=== PATIENT | female | born 1975 | race Caucasian/White ===

== ENCOUNTER → 2017-12-10 08:06 | Outpatient (CLI) | payer BC, SELFPAY ==
[2017-12-10 09:09] LABS: FREE T4 0.88 ng/dL (0.76-1.46); TSH 0.92 uIU/mL (0.358-3.74)
[2017-12-10 16:17] LABS: T3, Total 134 ng/dl (97-169)
[2017-12-10 21:33] LABS: T3, Total 143 ng/dl (97-169)
== END ==
PROVIDERS: PCP Nurse Practitioner Family; Visit Provider Internal Medicine Endocrinology, Diabetes & Metabolism
DX: E03.9 Hypothyroidism, unspecified (principal)
CPT/HCPCS: 36415; 84439; 84443; 84480

== ENCOUNTER 2018-04-15 07:58 | Outpatient (CLI) | payer BC, SELFPAY ==
[2018-04-15 10:34] LABS: FREE T4 0.81 ng/dL (0.76-1.46); TSH 0.95 uIU/mL (0.358-3.74)
[2018-04-15 17:56] LABS: T3, Total 124 ng/dl (97-169)
[2018-04-15 21:58] LABS: T3, Total 164 ng/dl (97-169)
== END 2018-04-15 08:18 ==
PROVIDERS: PCP Nurse Practitioner Family; Visit Provider Internal Medicine Endocrinology, Diabetes & Metabolism
DX: E03.9 Hypothyroidism, unspecified (principal)
CPT/HCPCS: 36415; 84439; 84443; 84480

== ENCOUNTER 2018-04-21 00:40 | Outpatient (CLI) | payer BC, SELFPAY ==
--- NOTE | 2018-04-21 10:00 | DI.COMBO_ITS ---
SYMPTOMS/DIAGNOSIS: RIGHT BREAST MASS, N63.0 MAMMOGRAM: Mammograms were interpreted according to the usual protocol including computer analysis with CAD system, tomosynthesis and C view imaging. The breast tissue is moderately radiodense, which lowers the sensitivity of the study. In the right breast, there is a well-circumscribed region of lateral subareolar nodularity and a questionable small region of nodularity somewhat deeper in the breast and a third possible nodule laterally. The palpable abnormality is most superficial and is lateral subareolar. In the left breast, no mass is identified. There are no suspicious calcifications in either breast. SUMMARY: No specific findings to suggest malignancy at a nodular region that is smooth walled and well circumscribed and likely represents a benign process. Further evaluation with ultrasound is recommended. RIGHT BREAST ULTRASOUND: At ultrasound, there is a 1.7 x 1.2 x 2.4 cm well-circumscribed nodule, which appears in the region of the abnormality noted on the patient's mammogram. This nodule is hypoechoic and solid and likely represents a fibroadenoma. 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 Category 3. MQSA ASSESSMENT OF FINDINGS: Probably benign. Six month follow-up recommended. Category 3. Patient will receive a letter notifying them of these results. BI-RADS category D. The breasts are extremely dense, which lowers the sensitivity of mammography.
== END 2018-04-21 01:00 ==
PROVIDERS: PCP Nurse Practitioner Family; Visit Provider Nurse Practitioner Family
DX: N63.10 Unspecified lump in the right breast, unspecified quadrant (principal); D24.1 Benign neoplasm of right breast
CPT/HCPCS: 76642; 77062; 77066; G0279

== ENCOUNTER 2018-06-09 18:12 | Outpatient (REF) | payer BC, SELFPAY ==
[2018-06-09 20:26] LABS: HCG Quant, Pregnancy < 1 mIU/mL (1-3)
== END 2018-06-09 18:32 ==
LOC: NCHCN 18:12
PROVIDERS: PCP Nurse Practitioner Family; Visit Provider Nurse Practitioner Family
DX: N91.1 Secondary amenorrhea (principal)
CPT/HCPCS: 84702

== ENCOUNTER 2018-10-13 07:45 | Outpatient (CLI) | payer BC, SELFPAY ==
[2018-10-13 09:30] LABS: FREE T4 0.95 ng/dL (0.76-1.46); TSH 0.06 uIU/mL (0.358-3.74)
[2018-10-13 18:19] LABS: T3, Total 132 ng/dl (97-169)
[2018-10-13 21:31] LABS: T3, Total 205 ng/dl (97-169)
== END 2018-10-13 08:05 ==
PROVIDERS: PCP Nurse Practitioner Family; Visit Provider Internal Medicine Endocrinology, Diabetes & Metabolism
DX: E03.9 Hypothyroidism, unspecified (principal)
CPT/HCPCS: 36415; 84439; 84443; 84480

== ENCOUNTER 2019-05-31 07:44 | Outpatient (CLI) | payer BC, SELFPAY ==
[2019-05-31 09:09] LABS: FREE T4 0.79 ng/dL (0.76-1.46); TSH 1.45 uIU/mL (0.36-3.74)
[2019-05-31 17:02] LABS: T3, Total 142 ng/dL (97-169)
== END 2019-05-31 08:04 ==
PROVIDERS: PCP Nurse Practitioner Family; Visit Provider Internal Medicine Endocrinology, Diabetes & Metabolism
DX: E03.9 Hypothyroidism, unspecified (principal)
CPT/HCPCS: 36415; 84439; 84443; 84480

== ENCOUNTER 2019-10-07 14:43 | Emergency (ER) | payer BC, SELFPAY ==
[2019-10-07 14:47] VITALS: BP 147/63; PULSE 50; RESP 16; TEMP 36.7; O2SAT 99
[2019-10-07 15:14] LABS: Bilirubin Small (Negative); Blood Small (Negative); Clarity Clear (Clear); Glucose Negative (Negative); Ketones 15 mg/dL (Negative); Leukocyte Esterase Negative (Negative); Nitrite Negative (Negative); Specific Gravity 1.025 (1.005-1.025); Urobilinogen 0.2 EU/dL (Up TO 0.2); pH 5.5 (5-8)
--- NOTE | 2019-10-07 15:14 | W.ED.GENAD ---
Discharge Plan Disposition Patient Disposition: HOME Condition: Stable Discharge Details Chief Complaint: Abd Prob Clinical Impression: Gastritis Primary Care Provider: Pee Coombs ED Provider: Edwina Washington Home Meds and New Rx's Prescriptions: New ondansetron HCl [Zofran] 4 mg tablet 4 mg PO Q8H PRNQty: 14 RF: 0 sucralfate [Carafate] 1 gram tablet 1 gm PO TID Qty: 21 RF: 0 omeprazole 20 mg capsule,delayed release(DR/EC) 20 mg PO DAILY Qty: 7 RF: 0 Continued thyroid (pork) [[place] Thyroid] 90 MG tablet 90 mg PO DAILY RF: 0 sertraline 50 mg tablet 100 mg PO DAILY RF: 0 Discharge Instructions Instructions: Gastritis (ED) Additional Instructions: Stay well-hydrated. Use medications as prescribed. When you finish your first week of omeprazole please change to Pepcid [id number] as discussed. Please follow-up with your primary care doctor within 1 week for reevaluation. Follow-up with outpatient surgeon as discussed for consideration of an upper endoscopy as discussed. Rest activities as tolerated. Your CAT scan is reassuring as discussed. Return for any worsening, concerns or alarming symptoms sooner if needed Referrals: Dulce Maria Min DO [OSTEOPATHIC DOCTOR] - Discharge Data Discharge Date/Time-TO BE ENTERED AT DEPARTURE: 10/07/19 18:15 Medical Decision Making <Daisy Echavarria - Last Filed: 10/08/19 14:31> 44-year-old female with a history of IBS presents with a chief complaint of left upper quadrant abdominal pain. This began 2 days ago which was associated with nausea and vomiting which is now resolved. States it is a dull crampy pain which increases to sharp stabbing pains after eating. Denies diarrhea has been urinating without difficulty. Denies chest pain, shortness of breath. She does also endorse diaphoresis, subjective fever, cough, denies any recent travel. 1553: Patient reevaluation, she is still complaining of nausea has received p.o. Zofran ODT. RN at bedside drawing second blood culture. Will order Pepcid IV piggyback and another Zofran 4 mg IV push. At this time kidney functions are pending and CT is pending. Differential diagnosis includes but not limited to gastric ulcer, exacerbation of IBS, gastroenteritis, acute gastritis, COVID, cholecystitis, pancreatitis, viral gastroenteritis. Care is to be handed off to oncoming provider MOISES Rivero pending labs, CT result expected disposition is discharged home. I suspect this is an exacerbation of her IBS but gastroenteritis or other pathology cannot be excluded at this time. Patient case and details discussed, verbalized understanding. <MOISES Martinez - Last Filed: 10/07/19 18:11> Accepted signout of this patient pending CT results. Please see HPI regarding details of patient's history. Patient reevaluated after CT results returned. CT results reveals no acute intra-abdominal emergency. There is a mass noted in patient's right breast which patient is aware of has had biopsy and evaluation for in the past. Patient is currently menstruating with tampon in place which explains intravaginal finding. Patient reports she has been moving bowels without difficulty and denies obvious constipation despite stool burden noted. On reevaluation patient does report improvement compared to initial presentation in the last few days however patient does report persistent left upper quadrant pain. Patient has mild tenderness with palpation. Will trial GI cocktail. Patient agrees with this plan of care. Patient primarily concerned the possibility of ulcerative disease. Patient does report some improvement with Pepcid previously provided during visit and nausea medication. Patient is requesting nausea medication prescription for home. We did discuss use of PPIs. Patient reports she does take Zantac at home. Patient feels most comfortable continuing Zantac use. Did recommended continued use of Pepcid. Discussed the possibility of EGD for concern of gastritis or ulcerative disease. Patient agrees with plan of follow-up including surgical referral and plan to reevaluate with PCP. Patient feels significantly improved after GI cocktail, full resolution of pain. Will refer to surgery for consideration of EGD. Patient agrees with this plan of care. Given significant improvement recommended patient use omeprazole for 1 week then transition to Pepcid in addition to Carafate for symptomatic relief. Of note on discharge patient is bradycardic which she reports this to be her baseline. She denies chest pain, difficulty breathing or shortness of breath or wheezing. Has no concerns of her heart rate. Patient's previous visits all revealed similar trend in heart rates. The patient was stable and requested discharge. Prior to discharge, my usual and customary return precautions were reviewed with the patient - this included follow-up instructions and reasons to return to the Emergency Department if conditions worsens, does not improve as expected, or other new concerns arise. HPI <Daisy Jericho - Last Filed: 10/08/19 14:31> General Mode of arrival: ambulatory. Date/Time Provider Initiated Documentation: 10/07/19 14:50. Limitations to Documentation: no limitations. Information obtained by: patient. HPI Narrative: 44-year-old female with a history of IBS presents with a chief complaint of left upper quadrant abdominal pain. This began 2 days ago which was associated with nausea and vomiting which is now resolved. States it is a dull crampy pain which increases to sharp stabbing pains after eating. Denies diarrhea has been urinating without difficulty. Denies chest pain, shortness of breath. She does also endorse diaphoresis, subjective fever, cough, denies any recent travel. Related Data Home Medications Medication Instructions Recorded Confirmed thyroid (pork) [[place] Thyroid] 90 mg PO DAILY 05/19/13 10/07/19 omeprazole 20 mg PO DAILY #7 cap 10/07/19 ondansetron HCl [Zofran] 4 mg PO Q8H PRN #14 tab 10/07/19 sertraline 100 mg PO DAILY 10/07/19 10/07/19 sucralfate [Carafate] 1 gm PO TID #21 tab 10/07/19 Previous Rx's Medication Instructions Recorded omeprazole 20 mg PO DAILY #7 cap 10/07/19 ondansetron HCl [Zofran] 4 mg PO Q8H PRN #14 tab 10/07/19 sucralfate [Carafate] 1 gm PO TID #21 tab 10/07/19 Allergies Allergy/AdvReac Type Severity Reaction Status Date / Time No Known Allergies Allergy Unverified 10/07/19 14:51 General Stated Complaint: Abd Prob NOHEMI: 3 Review of Systems <Daisy Echavarria - Last Filed: 10/08/19 14:31> Narrative: Constitutional: Negative for weight loss, alert and oriented, well groomed, normal body habitus, appears comfortable. HEENT: Denies trauma, headaches, blurry vision, nasal discharge, sore throat, trouble swallowing. Chest: Denies chest pain, palpitations, irregular rhythm, hypertension. Respiratory: Denies Shortness of breath, cough, hemoptysis. GI: Denies diarrhea, constipation. Positive left upper quadrant abdominal pain associated nausea and vomiting which has resolved. History of IBS. : Denies dysuria, hematuria, flank pain, rectal bleeding. Neuro: Denies dizziness, blurry vision, weakness, syncope, headache or facial numbness. Hematologic: Denies easy bruising, intolerance to heat or cold, hair loss. All systems reviewed & are unremarkable except as noted in HPI and below PFSH <Daisy Echavarria - Last Filed: 10/08/19 14:31> Social History Smoking/Tobacco Use Status: Former Tobacco Use Alcohol Intake: never Drug use: Never Substance use type: does not use Details: quit smoking 2018 Exam <Daisy Echavarria - [facility] Filed: 10/08/19 14:31> Narrative Exam Narrative: Constitutional: Alert and oriented x3. Appears stated age. Normal body habitus. Head: Normocephalic, no trauma. Eyes: Pupils PERRLA, Red reflex noted, EOM's intact. Eyelids symmetrical without lesions, discharge, or swelling. ENT: Bilateral TM's WNL, External ear normal to inspection, no mastoid TTP, swelling, or erythema, Nasal turbinates WNL, no nasal discharge. Normal dentition, Posterior pharynx WNL, no exudate. Chest: RRR, Normal S1, S2, distal pulses intact. Resp: Lungs clear to auscultation bilaterally, no wheezes, rales, or rhonchi. Musculoskeletal: Normal gait, 5/5 strength to all four extremities. Abdomen: Normal to inspection, soft nondistended, mild left upper quadrant tenderness with palpation. Skin: No suspicious rashes or lesions. Capillary refill less than 2 sec. Neurologic: Cranial nerves II-XII intact. Alert and oriented x 3. DTR's intact. Hematologic/Lymphatic: No ecchymosis, no lymphadenopathy. Course <Daisy Echavarria - Last Filed: 10/08/19 14:31> Vital Signs Vital signs: Vital Signs Temperature 36.7 C 10/07/19 14:47 Pulse 50 L 10/07/19 14:47 Respiratory Rate 16 10/07/19 14:47 Blood Pressure 147/63 H 10/07/19 14:47 Pulse Oximetry 99 10/07/19 14:47 Temperature 36.7 C 10/07/19 14:47 Temperature Source Skin 10/07/19 14:47 Pulse 50 L 10/07/19 14:47 Respiratory Rate 16 10/07/19 14:47 Respiratory Effort 10/07/19 14:52 Blood Pressure 147/63 H 10/07/19 14:47 Blood Pressure Position Supine 10/07/19 14:47 Pulse Oximetry 99 10/07/19 14:47 Oxygen Delivery Method Room Air 10/07/19 14:47 Oxygen Flow Rate 0 10/07/19 14:47 Pain Level 9 10/07/19 14:47 Lab/Test Results Lab/Test Results: 10/07/19 15:10 Blood Blood Culture - Pending 10/07/19 15:10 Blood Blood Culture - Pending POC- Test(urine) Negative Sign Out <Daisy Echavarria - Last Filed: 10/08/19 14:31> Sign Out Data: Sign Out Comment: Pending CT abdomen pelvis, rule out exacerbation of IBS versus gastroenteritis. Was tested for COVID. Last updated by Daisy Echavarria at 10/07/19 16:16
[2019-10-07 15:24] LABS: Bacteria Few HPF (Negative); Epithelial Cells Few HPF (Negative); RBC 0-2 HPF (0-2); WBC 0-2 HPF (0-5)
[2019-10-07 15:25] LABS: C & S Indicated? No; Casts Negative LPF (Negative); Crystals Negative HPF (Negative); Mucus Moderate (Negative)
[2019-10-07] MEDS: Normal Saline 1,000 ML 1000 ML IV (15:25)
[2019-10-07] MEDS: Ondansetron O.D.T. 4 MG TABEF PO (15:44)
[2019-10-07 15:49] LABS: Abs Immature Grans 0.01 k/cumm (0.0-0.09); Absolute Basophil Count 0.02 k/cumm (0.0-0.2); Absolute Eosinophil Count 0.02 k/cumm (0.0-0.7); Absolute Lymphocyte Count 1.64 k/cumm (1.2-3.4); Absolute Monocyte Count 0.56 k/cumm (0.11-0.7); Absolute Neutrophil Count 5.79 k/cumm (1.2-6.7); Basophils % 0.2; Eosinophils % 0.2; HGB 12.7 g/dL (12.0-15.5); Immature Grans % 0.1 %; Lymphocytes % 20.4; Mean Corp. HGB Concentration 33.4 g/dL (32.0-36.0); Mean Corpuscular Hemoglobin 28.7 pg (27.0-33.0); Neutrophils % 72.1; Platelet Count 257 x1000/uL (130-400); RBC 4.42 m/cumm (4.00-5.20); RBC Distribution Width 12.8 % (11.7-14.6); White Blood Cell Count 8.04 k/cumm (4.4-10.8)
[2019-10-07 15:56] LABS: Lipase 73 U/L (73-393)
[2019-10-07 15:59] LABS: ALT 31 U/L (14-59); AST 19 U/L (15-37); Albumin 3.7 g/dL (3.4-5.0); Alkaline Phosphatase 47 U/L (46-116); Anion Gap 8.3 mmol/L (3-11); BUN 7 mg/dL (7-18); Bilirubin, Total 0.5 mg/dL (0.2-1.0); CO2 26.7 mmol/L (21.0-32.0); CREATININE 0.95 mg/dL (0.55-1.02); Calcium 8.7 mg/dL (8.5-10.1); Chloride 102 mmol/L (98-107); Glucose 112 mg/dL (74-106); Magnesium 1.9 mg/dL (1.8-2.4); Potassium 3.1 mmol/L (3.5-5.1); Sodium 137 mmol/L (136-145); Total Protein 7.3 g/dL (6.4-8.2)
[2019-10-07] MEDS: Normal Saline - Diluent 50 ML VIAL IV (16:21)
[2019-10-07] MEDS: Omnipaque 350 MG/ML 100 ML BTL IJ (16:22)
--- NOTE | 2019-10-07 16:33 | DI.CT_ITS ---
EXAM: CT ABDOMEN PELVIS W CLINICAL HISTORY: Left upper quadrant abdominal pain nausea vomiting, H/O IBS,? GASTRITIS OR ENTERIT IS COMPARISON: CT ABD PELVIS WITH CONTRAST from 05/19/2013 FINDINGS: CT examination of the abdomen and pelvis was performed with a bolus infusion of 100 cc of Omnipaque 3 50. Note is made of a lobulated right breast mass, a 2.4 cm in diameter right breast mass was noted on prior ultrasound of April 2018, follow-up mammogram and ultrasound recommended to rule out new breast mass. Images obtained through the lung bases are unremarkable. The liver, spleen, and pancreas appear norm al. Question mild small bowel wall thickening in the left upper quadrant, a small jejunal intussusce ption is noted, this is statistically likely to be transient. Follow-up CT or upper GI series recomm ended. No other focal bowel pathology. Normal appearance of the appendix. No evidence of diverticulitis or bowel obstruction. Gallbladder and bile ducts are CT normal with an apparent Phrygian cap of the gallbladder. Adrenals and kidneys appear normal. No urinary tract calcification or hydronephrosis. Abdominal aorta is of normal diameter and major visceral vessels appear normal. No abdominal wall hernia. No significant abdominal or pelvic adenopathy. Prop Setter structures are unremarkable. No free fluid in the pelvis. IMPRESSION: Incidental finding of right breast mass, 2-3 cm in diameter, this probably corresponds to previously noted right breast mass seen at ultrasound in 2018. Mammographic and ultrasound correlation requeste d, I would note that the mass was previously seen to be consistent with fibroadenoma and follow-up ex amination was recommended, however I see no evidence of follow-up since that time. Jejunal intussusception, mild wall thickening proximal small bowel noted, follow-up upper GI/small arin wel follow-through or repeat CT recommended to rule out underlying mass causing intussusception.
[2019-10-07 16:42] VITALS: BP 129/51; PULSE 45; RESP 16; TEMP 36.5; O2SAT 100
[2019-10-07] MEDS: FAMOTIDINE 20 MG/50 ML BAG 200 MG IVPB (16:46)
[2019-10-07] MEDS: Ondansetron 4 MG/2 ML VIAL IVP (16:46)
--- NOTE | 2019-10-07 17:08 | DI.VRAD_ITS ---
PROCEDURE INFORMATION: Exam: CT Abdomen And Pelvis With Contrast Exam date and time: 10/07/2019 4:28 PM Age: 44 years old Clinical indication: Abdominal pain; Generalized; Patient HX: Luq pain, nausea, vomiting TECHNIQUE: Imaging protocol: Computed tomography of the abdomen and pelvis with intravenous contrast. Radiation optimization: All CT scans at this facility use at least one of these dose optimization techniques: automated exposure control; mA and/or kV adjustment per patient size (includes targeted exams where dose is matched to clinical indication); or iterative reconstruction. Contrast material: OMNI-PAQUE 350; Contrast volume: 100 ml; Contrast route: IV; COMPARISON: CT ABD PELVIS WITH CONTRAST 05/19/2013 7:17 PM FINDINGS: Lungs: Minimal scarring and/or atelectasis at the lung bases as well as in the right middle lobe. Liver: Normal. No mass. Gallbladder and bile ducts: Normal. No calcified stones. No ductal dilation. Pancreas: Normal. No ductal dilation. Spleen: Normal. No splenomegaly. Adrenals: Normal. No mass. Kidneys and ureters: Normal. No hydronephrosis. Stomach and bowel: The stomach shows no abnormality. The small bowel is nondilated. Moderate fecal burden throughout the colon without surrounding inflammation Appendix: No evidence of appendicitis. Intraperitoneal space: Unremarkable. No free air. No significant fluid collection. Vasculature: Unremarkable. No abdominal aortic aneurysm. Lymph nodes: Unremarkable. No enlarged lymph nodes. Bladder: Unremarkable as visualized. Reproductive: Several prominent follicles the right ovary the largest measuring 1.5 cm. Uterus shows no abnormality. There is a large amount of air in the vagina most likely a tampon . Bones/joints: Unremarkable. No acute fracture. Soft tissues: The breasts are only partially visualized but there is some increased density in the right breast. In particular there is a 2 cm ovoid soft tissue masslike density in the anterior right breast. IMPRESSION: 1. 2 cm mass in the right breast. April 23, 2018 on ultrasound there was a 2.4 cm well-circumscribed nodule according to the report that may correspond to this mass which was suggested to be a fibroadenoma. On a non emergent basis correlation is suggested. 2. No clear etiology of the patient's left upper quadrant pain or nausea and vomiting is demonstrated. Dictated and Authenticated by: Bruno Payton MD. Ordering:MAYNOR Villa MD
[2019-10-07 17:48] VITALS: BP 122/56; PULSE 46; RESP 18; TEMP 36.6; O2SAT 99
--- NOTE | 2019-10-07 18:10 | NUR.NOTE ---
Nursing Note: Referral [facility] for follow up. Honey Jacobs
--- NOTE | 2019-10-08 08:25 | W.ED.FU ---
Date of service: 10/08/19 Time of Service: 08:25 08 29: Spoke with patient she states she does feel somewhat better and some times does have a little twinge of pain discussed findings she does state that she has had Follow Up Plan: Call received from radiologist Dr. Stu Castañeda regarding CT abdomen patient received last night with IV contrast. He reports a jejunal into jejunal intussusception which could be somewhat transient sometimes but does need close follow-up with a small bowel follow-through. She also has a right breast mass that does need a repeat mammogram. I will call patient this morning to see how she is feeling and relay these messages. 29: Did speak with patient on the phone she does state that she feels somewhat better. Discussed radiology findings, verbalized understanding. She has had a repeat mammogram for her right breast mass at [facility]. Discussed the possible intussusception and strict return instructions. Did stress the importance of following up with surgery and having close follow-up, verbalized understanding.
[2019-10-08 11:57] LABS: COVID-19 RT-PCR UVMMC Result Negative (Negative)
== END 2019-10-07 18:15 | disposition home or self-care (01) ==
PROVIDERS: Registered Nurse Emergency; Emergency Provider Physician Assistant; PCP Nurse Practitioner Family
DX: K56.1 Intussusception (principal); K29.00 Acute gastritis without bleeding; R10.12 Left upper quadrant pain; K58.9 Irritable bowel syndrome, unspecified
CPT/HCPCS: 36415; 80053; 81025; 83690; 87040; 96361; 96374; 96375; 99285; U0003; 74177; 81003; 81015; 83735; 85025; 99284; J2405; J3490

== ENCOUNTER 2021-01-04 16:20 | Outpatient (REF) | payer BC, SELFPAY ==
[2021-01-04 21:22] LABS: FREE T4 0.91 ng/dL (0.76-1.46); TSH 0.27 uIU/mL (0.36-3.74)
[2021-01-05 17:20] LABS: T3,Free 3.8 pg/mL (2.8-5.3)
== END 2021-01-04 16:21 | disposition home or self-care (01) ==
LOC: LBN 16:20
PROVIDERS: PCP Nurse Practitioner Family; Visit Provider Nurse Practitioner Family
DX: E03.9 Hypothyroidism, unspecified (principal)
CPT/HCPCS: 84439; 84443; 84481

== ENCOUNTER 2021-10-05 01:45 | Outpatient (CLI) | payer BC, SELFPAY ==
[2021-10-05 09:04] LABS: FREE T4 0.88 ng/dL (0.76-1.46); TSH 1.14 uIU/mL (0.36-3.74)
[2021-10-05 18:46] LABS: T3, Total 131 ng/dL (97-169)
[2021-10-05 22:30] LABS: T3, Total 158 ng/dL (97-169)
== END 2021-10-05 01:46 | disposition home or self-care (01) ==
PROVIDERS: PCP Nurse Practitioner Family; Visit Provider Internal Medicine Endocrinology, Diabetes & Metabolism
DX: E03.9 Hypothyroidism, unspecified (principal)
CPT/HCPCS: 36415; 84439; 84443; 84480

== ENCOUNTER 2022-08-02 08:32 | Emergency (ER) | payer BC, SELFPAY ==
[2022-08-02] VITALS (13 sets, daily range): BP systolic 120–122; BP diastolic 66–68; PULSE 63–87; RESP 8–25; TEMP 35.5; O2SAT 98
--- NOTE | 2022-08-02 08:30 | RT.EKG_ITS ---
APPROVED REPORT Exam: Resting ECG Reason for Exam: palpitations Patient Location: E HR:77 bpm ECG Measurements Heart Rate 77 AXIS MO 153 P 74 QRSd 82 QRS 36 QT 361 T 28 QTc 410 Conclusion Sinus rhythm...normal P axis, V-rate 60- 99
--- NOTE | 2022-08-02 08:59 | W.ED.GENAD ---
Discharge Plan Disposition Patient Disposition: Home Discharge Details Clinical Impression: Heart palpitations Primary Care Provider: Karen Renner ED Provider: Stu Sage Home Meds and New Rx's Prescriptions: Continued thyroid (pork) [[place] Thyroid] 90 mg tablet 45 mg PO DAILY Discharge Instructions Instructions: Heart Palpitations (ED) Additional Instructions: I have ordered an outpatient Holter monitor for you. Please follow-up with respiratory therapy to execute this order. They were not able to place the monitor today in the ER. Continue routine medications. Consider reducing caffeine to decaffeinated coffee in the late morning and daytime. Continue small, frequent sips of fluids to maintain good hydration. Return to the emergency room for any acute concerns Medical Decision Making This is a 47-year-old female who states over the past 15 to 20 years she has had 5 or so episodes of palpitations that have resolved on their own. She will note last night she had a bit of poor sleep, then awoke normally and after doing her morning routine she noted the onset of palpitations following a single cough. They persisted until she got to work, she felt some tingling in her hands and presented to the ER. She did not have syncope or chest pain. She states upon lying in the gurney she felt the palpitations resolved. She has not had any difficulty breathing, leg swelling. She does drink coffee daily but there is been no change to this routine. Her only medication is thyroid replacement.. Patient arrives with no active complaint. Her initial EKG is unremarkable and a sinus rhythm. Differential diagnosis includes PSVT, benign palpitations, PVCs, electrolyte abnormality or dehydration. Patient had screening blood work obtained and observed on the [employer] assistant [employer]. No PVCs or other abnormality observed. Screening blood work unremarkable and patient feeling improved. I will place patient on a Holter monitor as an outpatient. I am quite suspicious for PSVT and discussed this with her. She understands indications to return to the ER. HPI General Mode of arrival: ambulatory. Date/Time Provider Initiated Documentation: 08/02/22 08:32. Limitations to Documentation: no limitations. Information obtained by: patient. History of Present Illness 47 year old F presents to the emergency department with the chief complaint of Palpitations 45 minutes, now resolved, described as mild and similar to prior episodes, and is localized to the chest. Patient reports no radiation. Patient started experiencing this minute(s) and it has been now resolved. No relieving factors improve symptom(s), No exacerbating factors reported . Patient notes no other symptoms.; denies chest pain, cough, fever/chills and syncope. Patient did receive the following treatments prior to arrival, none Related Data Home Medications Medication Instructions Recorded Confirmed thyroid (pork) 90 mg tablet 45 mg PO DAILY 02/15/21 08/02/22 ([place] Thyroid) Allergies Allergy/AdvReac Type Severity Reaction Status Date / Time No Known Allergies Allergy Unverified 08/02/22 09:10 General Stated Complaint: Palpitatns NOHEMI: 2 Review of Systems Narrative: Some poor sleep last night. No recent illness. Drinks coffee daily. No change to routine. Denies chest pain. 7 systems reviewed and otherwise negative PFSH All Active Problems (Updated 08/02/22 @ 10:19 by Stu Sage MD) Heart palpitations (Acute) Halitosis (Acute) Chronic tonsillitis (Acute) Hypothyroidism (Chronic) Depression (Chronic) Fatigue (Acute) Diarrhea (Acute) Breast mass (Acute) Sleep disorder (Acute) Bradycardia (Acute) Hearing loss, right (Acute) Tonsillolith (Acute) Family History Maternal Grandmother Breast cancer Paternal Grandmother Breast cancer Maternal Grandmother No problems noted. Paternal Grandfather Diabetes Maternal Grandfather Diabetes Other FHx: mental illness Heart disease Thyroid disease Social History Smoking/Tobacco Use Status: Former Tobacco Use Smoking risk assessment performed?: Yes Alcohol Intake: former Drug use: Never Substance use type: does not use Details: quit smoking 2018 Pets and animals: Yes Pets and animals: dog(s) and farm animals Exam Narrative Exam Narrative: GEN: awake, alert, oriented 3. Pleasant, well groomed, interactive. HEAD: Normocephalic, atraumatic ENT: Mucous membranes moist, oropharynx unremarkable, External ear exam unremarkable EYES: PERRL, EOMI NECK: Full ROM, no CLAIR, no menigismus CHEST/RESP: Nontender, clear to auscultation bilateral, no wheeze/rhonchi/rales CARDIOVASCULAR: RRR, no murmur, rub lenny. 2+ Rad pulse bilateral ABDOMEN: Soft, nontender, no mass. +Bowel sounds EXT: Full ROM, no edema, no rash Neuro: Grossly normal neurologic exam, conversant, interactive. Psych: Speech fluent, thoughts congruent, affect normal Course Vital Signs Vital signs: Vital Signs Temperature 35.5 C L 08/02/22 08:36 Pulse 87 08/02/22 08:36 Respiratory Rate 17 08/02/22 08:36 Blood Pressure 122/66 08/02/22 08:36 Pulse Oximetry 98 08/02/22 08:36 Temperature 35.5 C L 08/02/22 08:36 Temperature Source Tympanic 08/02/22 08:36 Pulse 87 08/02/22 08:36 Respiratory Rate 17 08/02/22 08:36 Blood Pressure 122/66 08/02/22 08:36 Pulse Oximetry 98 08/02/22 08:36 Oxygen Delivery Method Room Air 08/02/22 08:36 Oxygen Flow Rate 0 08/02/22 08:36 Pain Level 0 08/02/22 08:36
[2022-08-02 09:05] LABS: Abs Immature Grans 0.01 10^3/uL (0.0-0.06); Absolute Basophil Count 0.06 10^3/uL (0.0-0.2); Absolute Eosinophil Count 0.34 10^3/uL (0.0-0.7); Absolute Lymphocyte Count 1.72 10^3/uL (1.2-3.4); Absolute Monocyte Count 0.38 10^3/uL (0.1-0.8); Absolute Neutrophil Count 3.46 10^3/uL (1.2-6.7); Eosinophils % 5.7; HGB 13.6 g/dL (11.2-15.7); Immature Grans % 0.2; Lymphocytes % 28.8; MCH 29.5 pg (27.0-33.0); MCV 87 fL (80-95); Monocytes % 6.4; Neutrophils % 57.9; Platelet Count 195 10^3/uL (130-400); RBC 4.61 10^6/uL (3.93-5.22); RDW 12.6 % (11.7-14.6); RDW-SD 39.7 fL; WBC 5.97 10^3/uL (4.4-10.8)
[2022-08-02 10:11] LABS: ALT 30 U/L (14-59); AST 18 U/L (15-37); Albumin 3.5 g/dL (3.4-5.0); Alkaline Phosphatase 62 U/L (46-116); Anion Gap 8.2 mmol/L (3-11); BUN 13 mg/dL (7-18); Bilirubin, Total 0.4 mg/dL (0.2-1.0); CO2 25.8 mmol/L (21.0-32.0); CREATININE 0.8 mg/dL (0.55-1.02); Calcium 9.1 mg/dL (8.5-10.1); Chloride 107 mmol/L (98-107); Estimated GFR 91.97 (mL/min/1.73m2); Glucose 100 mg/dL (74-106); Magnesium 1.8 mg/dL (1.8-2.4); Potassium 4.1 mmol/L (3.5-5.1); Sodium 141 mmol/L (136-145); Total Protein 7.2 g/dL (6.4-8.2); Troponin I < 50 ng/L (<or=60)
--- NOTE | 2022-08-03 07:54 | NUR.NOTE ---
Nursing Note: Paper order for 24hr holter monitor faxed to [facility] for palpitations/by Dr. Sage.
== END 2022-08-02 10:30 | disposition home or self-care (01) ==
PROVIDERS: Emergency Provider Emergency Medicine; PCP Family Medicine
DX: R00.2 Palpitations (principal); R20.2 Paresthesia of skin; R05.9 Cough, unspecified
CPT/HCPCS: 80053; 93005; 99283; 83735; 84443; 84484; 85025; 93010; 93225

== ENCOUNTER 2022-12-02 13:44 | Outpatient (CLI) | payer BC, SELFPAY ==
[2022-12-02 12:57] LABS: HCT 40.2 % (36.0-46.0); HGB 13.5 g/dL (11.2-15.7); MCH 29.7 pg (27.0-33.0); MCHC 33.6 % (32.0-36.0); MCV 88 fL (80-95); MPV 10.4 fL (8.0-11.0); Platelet Count 227 10^3/uL (130-400); RBC 4.55 10^6/uL (3.93-5.22); RDW 12.9 % (11.7-14.6); RDW-SD 42.3 fL; WBC 6.87 10^3/uL (4.4-10.8)
[2022-12-02 13:11] LABS: Anion Gap 8.6 mmol/L (3-11); BUN 13 mg/dL (7-18); CO2 25.4 mmol/L (21.0-32.0); Calcium 8.3 mg/dL (8.5-10.1); Calculated LDL 104 mg/dL (<100); Chloride 106 mmol/L (98-107); Cholesterol 167 mg/dL (<200); Estimated GFR 70.36 (mL/min/1.73m2); Glucose 102 mg/dL (74-106); HDL Cholesterol 43 mg/dL (40-60); Sodium 140 mmol/L (136-145); Triglyceride 100 mg/dL (<150)
[2022-12-02 13:12] LABS: Hemoglobin A1C 5.4 % (<5.7)
== END 2022-12-02 13:45 | disposition home or self-care (01) ==
LOC: LBO 13:44
PROVIDERS: PCP Family Medicine; Visit Provider Nurse Practitioner Family
DX: Z00.00 Encounter for general adult medical examination without abnormal findings (principal); E03.9 Hypothyroidism, unspecified; F32.89 Other specified depressive episodes; Z13.1 Encounter for screening for diabetes mellitus; Z13.220 Encounter for screening for lipoid disorders
CPT/HCPCS: 36415; 80048; 80061; 85027; 83036

== ENCOUNTER → 2023-03-26 01:53 | Outpatient (CLI) | payer BC, SELFPAY ==
--- NOTE | 2023-03-26 | DI.MAMMO_ITS ---
Exam(s) MAMMO SCREENING EXAM: MAMMO SCREENING CLINICAL HISTORY: SCREENING, PREVENT[facility],Z00.00 TECHNIQUE: Bilateral full field digital CC and MLO mammographic images were obtained with 3D tomosyn thesis and utilizing computer aided detection (CAD). COMPARISON: Available for comparison. FINDINGS: Masses/Architectural Distortion: There is a new 6 mm nodule in the outer left breast seen on the cran iocaudad view 10 cm from the nipple. There is a stable nodule in the right breast. There is a biops y clip now seen within the nodule. No areas of architectural distortion are present. Microcalcifications: No suspicious pleomorphic-type are seen. Skin Thickening/Nipple Retraction: None. IMPRESSION: 1. New 6 mm nodule in the outer left breast. 2. This area should be further evaluated with a spot compression view. Limited left breast ultrasoun d may also be obtained at that time. Be BI-RADS Category 0 - Assessment Incomplete: Need additional imaging evaluation Breast Density - Category B - Scattered areas of fibroglandular density Breast density category C or D implies that the patient has dense breast tissue. Dense breast tissue is very common and is not abnormal but dense breast tissue can make it harder to find cancer on a ma mmogram. Also, dense breast tissue may increase their breast cancer risk. This information about the result of the mammogram report was provided to the patient to raise their awareness. Use this report when you speak with the patient about their risks for breast cancer, which includes their family hist ory. At that time, you may recommend for more screening tests (Ultrasound or MRI) as they might be us eful based on their risk. A negative radiographic report should not delay biopsy if a dominant or clinically suspicious mass is present. Up to ten percent of cancers are not identified on mammography. A negative report may reinforce clinical impression. Adenosis and dense breasts may obscure an underlying neoplasm. False positive reports average 6 to 10%. Patient will receive a letter notifying them of these results.
== END ==
PROVIDERS: PCP Family Medicine; Visit Provider Nurse Practitioner Family
DX: Z12.31 Encounter for screening mammogram for malignant neoplasm of breast (principal)
CPT/HCPCS: 77063; 77067

== ENCOUNTER → 2023-03-31 21:29 | Outpatient (CLI) | payer BC, SELFPAY ==
--- NOTE | 2023-03-31 | DI.MAMMO_ITS ---
Exam(s) MG MAMMO SCREEN CALL BACK UNI US BREAST LT LIMITED EXAM: MG MAMMO SCREEN CALL BACK UNI and U/S breast LT limited CLINICAL HISTORY: 6 MM NODULE IN OUTER LT BREAST. TECHNIQUE: Craniocaudal and mediolateral oblique Full Field Digital Mammography views of the left br east with Computer Aided Diagnosis followed by Tomosynthesis and left breast ultrasound. COMPARISON: Comparison is made with prior examinations. FINDINGS: Mammography/Tomosynthesis: Masses/Architectural Distortion: The area of concern is not visualized on the additional views. No s uspicious masses or areas of architectural distortion are identified. Microcalcifictions: No suspicious pleomorphic-type are seen. Skin Thickening/Nipple Retraction: None. Limited left breast US: Echotexture: Normal appearance of the glandular tissue. Shadowing: No suspicious foci. Cyst: None. Solid lesions: There is a well-circumscribed ovoid hypoechoic lesion at the 11 o'clock position of th e left breast. No internal blood flow is seen. There is a an eccentric hyperechoic notch present. This may represent an intraparenchymal lymph node. It lies 3 cm from the nipple and measures 4 x 6 x 3 mm. No cystic or solid masses are seen to correspond to the finding on the initial mammogram. Ductal dilation: None. IMPRESSION: 1. No evidence of malignancy is noted. 2. Unless there is more urgent need, follow-up screening mammography is recommended, as per [employer] guidelines. 3. The findings were discussed with the patient on the date of the examination. BI-RADS Category 2 - Benign Findings Breast Density - Category B - Scattered areas of fibroglandular density Breast density Category C or D implies that the patient has dense breast tissue. Dense breast tissue can make it harder to find cancer on a mammogram. Dense breast tissue is also associated with an incr eased risk of breast cancer. This information about the result of the mammogram report was provided to the patient to raise their awareness. Use this report when you speak with the patient about their risks for breast cancer, which includes their family history. At that time, you may recommend additional screening tests (Ultrasoun d or MRI) as these tests may add significant information. A negative radiographic report should not delay biopsy if a dominant or clinically suspicious mass is present. Up to ten percent of cancers are not identified on mammography. A negative report may reinforce clinical impression. Adenosis and dense breasts may obscure an underlying neoplasm. False positive reports average 6 to 10%. Patient will receive a letter notifying them of these results.
== END ==
PROVIDERS: PCP Family Medicine; Visit Provider Family Medicine
DX: Z12.31 Encounter for screening mammogram for malignant neoplasm of breast (principal); N63.21 Unspecified lump in the left breast, upper outer quadrant
CPT/HCPCS: 76642; 77063; 77067

== ENCOUNTER 2023-07-04 16:19 | Outpatient (REF) | payer BC, SELFPAY ==
--- NOTE | 2023-07-04 13:30 | PAPFT_PTH ---
PATIENT: Ching Galeas [id number] AGE/SX: 47/F ROOM: RE07/04/[address]: JADE KAUFMAN : 1975 BED: DIS: 07/04/2023 SPEC #: [id number] RECD: 07/07/23 13:15 STATUS: NOHELIA REQ #: [id number] SONIYA: 07/04/23 13:[address]: Jade Kaufman DEPT: [facility] [place] Cytology RECD BY: Amrita Durand ENTERED: 07/07/23 13:16 SP TYPE: PAPFT OTHR DR: Karen Renner Tissues: 1 - CX/ENDOCX FOR PAP SMEARS Procedures: PAP THIN PREP/[facility] Screening HPV DNA PROBE Comments: [id number] (CHLAMYDIA/GC)
[2023-07-04 19:34] LABS: Abs Immature Grans 0.01 10^3/uL (0.0-0.06); Absolute Basophil Count 0.06 10^3/uL (0.0-0.2); Absolute Eosinophil Count 0.21 10^3/uL (0.0-0.7); Absolute Lymphocyte Count 2.08 10^3/uL (1.2-3.4); Absolute Monocyte Count 0.41 10^3/uL (0.1-0.8); Absolute Neutrophil Count 4.28 10^3/uL (1.2-6.7); Basophils % 0.9; HCT 39.6 % (36.0-46.0); HGB 13.2 g/dL (11.2-15.7); Immature Grans % 0.1; Lymphocytes % 29.5; MCH 29.1 pg (27.0-33.0); MCHC 33.3 % (32.0-36.0); MCV 87 fL (80-95); MPV 11.4 fL (8.0-11.0); Monocytes % 5.8; Neutrophils % 60.7; Platelet Count 221 10^3/uL (130-400); RBC 4.54 10^6/uL (3.93-5.22); RDW 13.2 % (11.7-14.6); RDW-SD 41.9 fL; WBC 7.05 10^3/uL (4.4-10.8)
[2023-07-04 19:55] LABS: FREE T4 0.91 ng/dL (0.76-1.46); TSH 2.21 uIU/Ml (0.36-3.74)
[2023-07-04 20:01] LABS: Hemoglobin A1C 5.2 % (<5.7)
[2023-07-04 20:40] LABS: Calculated LDL 121 mg/dL (<100); Cholesterol 180 mg/dL (<200); HDL Cholesterol 47 mg/dL (40-60); Triglyceride 62 mg/dL (<150); Vitamin B12 358 pg/mL (193-986)
[2023-07-04 20:42] LABS: Folate > 20.0 ng/mL (8.6-20.0)
[2023-07-04 21:13] LABS: Vitamin D 25 Total 32.1 ng/mL (30-100)
[2023-07-08 13:46] LABS: Chlamydia Result Negative (Negative); GC Result Negative (Negative)
== END 2023-07-04 16:20 | disposition home or self-care (01) ==
LOC: NCHCN 16:19
PROVIDERS: PCP Family Medicine; Referring Provider Nurse Practitioner Family; Visit Provider Nurse Practitioner Family
DX: Z12.4 Encounter for screening for malignant neoplasm of cervix (principal); Z11.51 Encounter for screening for human papillomavirus (HPV); Z11.3 Encounter for screening for infections with a predominantly sexual mode of transmission; E03.9 Hypothyroidism, unspecified; R53.83 Other fatigue; Z13.220 Encounter for screening for lipoid disorders
CPT/HCPCS: 80061; 82306; 87491; 87591; 88142; 82607; 82746; 83036; 84439; 84443; 85025; 87624

== ENCOUNTER 2023-09-13 14:21 | Outpatient (REF) | payer BC, SELFPAY | END 2023-09-13 14:22 | disposition home or self-care (01) | LOC: LBN 14:21 | PROVIDERS: PCP Family Medicine; Visit Provider Physician Assistant Medical | DX: J02.9 Acute pharyngitis, unspecified (principal); B95.4 Other streptococcus as the cause of diseases classified elsewhere | CPT/HCPCS: 87077; 87070 ==

== ENCOUNTER 2024-02-05 02:07 | Outpatient (CLI) | payer BC, SELFPAY ==
[2024-02-05 15:29] LABS: Hemoglobin A1C 5.3 % (<5.7)
[2024-02-05 16:35] LABS: ALT 34 U/L (14-59); AST 21 U/L (15-37); Albumin 3.6 g/dL (3.4-5.0); Alkaline Phosphatase 59 U/L (46-116); Anion Gap 6.6 mmol/L (3-11); BUN 12 mg/dL (7-18); Bilirubin, Total 0.41 mg/dL (0.2-1.0); CO2 28.4 mmol/L (21.0-32.0); Chloride 101 mmol/L (98-107); Estimated GFR 69.93 (mL/min/1.73m2); Glucose 94 mg/dL (74-106); Potassium 3.9 mmol/L (3.5-5.1); Sodium 136 mmol/L (136-145); TSH (W/Ref FT4) 1.19 uIU/mL (0.36-3.74); Total Protein 7.4 g/dL (6.4-8.2)
== END 2024-02-05 02:08 | disposition home or self-care (01) ==
LOC: LBO 02:07
PROVIDERS: PCP Family Medicine; Visit Provider Nurse Practitioner Family
DX: E03.9 Hypothyroidism, unspecified (principal); Z13.1 Encounter for screening for diabetes mellitus
CPT/HCPCS: 36415; 80053; 83036; 84443

== ENCOUNTER 2024-04-30 00:35 | Outpatient (CLI) | payer BC, SELFPAY ==
--- NOTE | 2024-04-30 | DI.MAMMO_ITS ---
Exam(s) MAMMO SCREENING EXAM: MAMMO SCREENING CLINICAL HISTORY: Screening, Z12.39 TECHNIQUE: Mammograms were interpreted according to the usual protocol including computer analysis w [employer]-Sight CAD system, tomosynthesis and C-view imaging. COMPARISON: 2017 and 2022 FINDINGS: The breasts are composed of scattered fibroglandular densities, Breast Density category B. No suspicious masses or suspicious microcalcifications are seen. Mild interval decrease in size of p reviously biopsied nodule in the lateral right breast. No skin thickening or abnormal axillary lymph nodes are seen. There has been no significant change from prior exams. IMPRESSION: BI-RADS Category 2 - Benign Findings Yearly screening mammography is recommended. Breast Density - Category B, scattered fibroglandular densities. A negative radiographic report should not delay biopsy if a dominant or clinically suspicious mass is present. Up to ten percent of cancers are not identified on mammography. A negative report may reinforce clinical impression. Adenosis and dense breasts may obscure an underlying neoplasm. False positive reports average 6 to 10%. Patient will receive a letter notifying them of these results.
== END 2024-04-30 00:55 ==
LOC: DI 00:35
PROVIDERS: PCP Family Medicine; Visit Provider Student in an Organized Health Care Education/Training Program
DX: Z12.31 Encounter for screening mammogram for malignant neoplasm of breast (principal); R92.323 Mammographic fibroglandular density, bilateral breasts; D24.1 Benign neoplasm of right breast
CPT/HCPCS: 77063; 77067

== ENCOUNTER 2024-10-05 15:50 | Outpatient (REF) | payer OTHER, SELFPAY ==
[2024-10-05 19:47] LABS: FREE T4 0.91 ng/dL (0.76-1.46); TSH 1.74 uIU/mL (0.36-3.74)
[2024-10-06 18:27] LABS: T3,Free 3.4 pg/mL (2.8-5.3)
== END 2024-10-05 15:51 | disposition home or self-care (01) ==
LOC: NCHCN 15:50
PROVIDERS: PCP Family Medicine; Visit Provider Physician Assistant
DX: E03.9 Hypothyroidism, unspecified (principal)
CPT/HCPCS: 84439; 84443; 84481